=== PATIENT | female | born 1965 ===

== ENCOUNTER → 2016-12-22 | Outpatient (CLI) | payer OTHER, BC | END | disposition home or self-care (01) | LOC: C.PAPS 18:03 | PROVIDERS: ATTEND Physician Assistant | DX: Z01.419 Encounter for gynecological examination (general) (routine) without abnormal findings (principal) ==

== ENCOUNTER → 2017-10-13 | Outpatient (CLI) | payer BC ==
[2017-10-13 16:07] LABS: FOLLICLE STIMULAT HORMONE 60.13 IU/L
== END | disposition home or self-care (01) ==
LOC: C.LAB1850 14:29
PROVIDERS: ATTEND Obstetrics & Gynecology
DX: N95.0 Postmenopausal bleeding (principal)